=== PATIENT | female | born 1995 | race Caucasian/White ===

== ENCOUNTER 2018-11-24 10:13 | Emergency (ER) | payer OTHER, MEDICAID ==
[~2018-11-24] VITALS: Ht 157.5 cm; Wt 52.2 kg
[~2018-11-24 10:13] MED LIST: BACTRIM DS TAB1 EACH PO; FLEXERIL PO; HUMALOG100 UNIT/1 SUBQ; HUMALOG100 UNIT/2; LANTUS SOL100 UNIT/1; LANTUS100 UNIT/M SUBQ; MOBIC7.5 MG PO; NORCO 7.5-3251 EACH PO; TRAMADOL 50 MG50 MG PO; VENTOLIN HFA 1818 GM INH
[2018-11-24] MEDS ORDERED: PROZAC10 MG PO (10:27)
[2018-11-24] MEDS ORDERED: IBU600 MG PO (11:28)
[2018-11-24] MEDS ORDERED: NORCO 5-325 TA1 EAC1 PO (11:28)
[2018-11-24 11:39] VITALS: BP 130/83
== END 2018-11-24 11:30 | disposition home or self-care (01) ==
LOC: M.ERS 10:13
DX: N75.0 Cyst of Bartholin's gland (principal); E10.9 Type 1 diabetes mellitus without complications; F41.9 Anxiety disorder, unspecified; Z88.8 Allergy status to other drugs, medicaments and biological substances

== ENCOUNTER 2018-12-28 12:46 | Emergency (ER) | payer OTHER ==
[~2018-12-28] VITALS: Ht 157.5 cm; Wt 47.6 kg
[~2018-12-28 12:46] MED LIST changes: +IBU600 MG PO; +NORCO 5-325 TA1 EAC1 PO; +PROZAC10 MG PO
[2018-12-28] MEDS ORDERED: BACTRIM DS TAB1 EACH PO (13:12)
[2018-12-28] MEDS ORDERED: KEFLEX500 M1 PO (13:12)
[2018-12-28] MEDS ORDERED: ACETAMINOPHEN-1 EAC1 PO (13:15)
[2018-12-28 13:30] VITALS: BP 138/88
== END 2018-12-28 13:30 | disposition home or self-care (01) ==
LOC: M.ERS 12:46
DX: L02.214 Cutaneous abscess of groin (principal); E10.9 Type 1 diabetes mellitus without complications; F41.9 Anxiety disorder, unspecified; Z88.8 Allergy status to other drugs, medicaments and biological substances